=== PATIENT | male | born 1965 | race African-American/Black ===

== ENCOUNTER 2017-09-28 21:16 | Emergency (ER) | payer MEDICAID ==
[~2017-09-28] VITALS: Ht 185.4 cm; Wt 72.0 kg
[~2017-09-28 21:16] MED LIST: CIPR500T4 PO; PERC5TAB12 PO
[2017-09-28 21:36] VITALS: BP 148/88; PULSE 72; RESP 16; TEMP 97.8; O2SAT 98
[2017-09-28 21:55] VITALS: BP 127/76; PULSE 67; RESP 16; O2SAT 98
--- NOTE | 2017-09-28 22:06 | PD ---
HPI Chief Complaint: Abdominal Pain Time Seen by Provider: 21:56 Travel History International Travel<30 days: No Contact w/Intl Traveler<30days: No Traveled to known affect area: No History of Present Illness HPI The patient is a 52 year old male who presents to the [facility] emergency department with a history of abdominal pain in the center of his abdomen that began at 4:30 AM this morning. He reports that the pain is sharp in character. The pain is in the suprapubic and area just below the umbilicus. He then noticed having dysuria at approximately 8 AM. He describes it as a burning sensation. The pain in his abdomen is worse after urinating. He denies urinary urgency or frequency. He reports that the pain is similar to when he had a urinary tract infection in the past. He reports that the sensation in his abdomen makes him feel like he needs to move his bowels. He has had loose stool a few times today. He denies having any blood in his stool. He denies having any mucus in his stool. He denies having any penile discharge, scrotal pain or swelling.On review of systems otherwise, the patient denies having any recent fevers, flank pain, cough, congestion, neck pain, chest pain, shortness of breath, vomiting, or neurologic symptoms. [facility] Past Medical History Narrative Medical Patient's past medical history is significant for urinary tract infection, peptic ulcer disease, GERD. Arthritis: No Asthma: Yes Autoimmune Disease: No Blood Disorders: No Anxiety: Yes Depression: No Heart Rhythm Problems: No Cancer: No Cardiac Catheterization: No Cardiovascular Problems: Yes (CHEST PRESSURE) High Cholesterol: No Chemotherapy: No Chest Pain: Yes Congestive Heart Failure: No COPD: No Cerebrovascular Accident: No Diabetes: No Diminished Hearing: No Endocrine: No Gastrointestinal Disorders: Yes GERD: Yes Glaucoma: No Genitourinary: No Headaches: No Hepatitis: No Hiatal Hernia: No Hypertension: No Immune Disorder: No Kidney Stones: No Musculoskeletal: No Neurologic: No Psychiatric: No Reproductive: No Respiratory: Yes (BRONCHITIS, CHEMICAL PNEUMONITIS 10/31) Migraines: No Myocardial Infarction: No Radiation Therapy: No Renal Failure: No Seizures: No Sickle Cell Disease: No Sleep Apnea: No Thyroid Disease: No Ulcer: Yes Past Surgical History Narrative Surgical The patient's past surgical history is significant for an appendectomy Abdominal Surgery: No Appendectomy: Yes Cardiac Surgery: No Cholecystectomy: No Coronary Artery Bypass Graft: No Ear Surgery: No Endocrine Surgery: No Eye Surgery: No Gynecologic Surgery: No Oral Surgery: No Thoracic Surgery: No Social History Alcohol Use: No Tobacco Use: No (quit smoking 3 months ago.) Substance Use: Yes (OCCASSIONAL MARIJUANA) Allergies-Medications (Allergen,Severity, Reaction): Coded Allergies: albuterol (Unverified Allergy, Mild, HIVES, 09/28/17) aspirin (Unverified Allergy, Mild, SWELLING IN EYES, 09/28/17) Reported Meds & Prescriptions Reported Meds & Active Scripts Active No Active Prescriptions or Reported Medications Zantac Review of Systems Except as stated in HPI: all other systems reviewed are Neg General / Constitutional: No: Fever Eyes: No: Visual changes HENT: No: Headaches Cardiovascular: No: Chest Pain or Discomfort Respiratory: No: Shortness of Breath Gastrointestinal: Positive: Diarrhea, Abdominal Pain, Changes in Bowel Habits, Indigestion, No: Nausea, Vomiting, Hematochezia, Constipation, Loss of Appetite Genitourinary: Positive: Dysuria, No: Urgency, Frequency, Flank Pain Musculoskeletal: No: Pain Skin: No Rash Neurologic: No: Weakness, Focal Abnormalities, Change in Mentation, Slurred Speech, Sensory Disturbance Psychiatric: No: Depression Endocrine: No: Polydipsia Hematologic/Lymphatic: No: Easy Bruising Physical Exam Narrative General: The patient is a well-developed well-nourished male in no acute distress. Head and Neck exam: Head is normocephalic atraumatic. Eyes: EOMI, pupils are equal round and reactive to light. Nose: Midline septum with pink mucous membranes Mouth: Dentition unremarkable. Moist mucus membranes. Posterior oropharynx is not erythematous. No tonsillar hypertrophy. Uvula midline. Airway patent. Neck: No palpable lymphadenopathy. No nuchal rigidity. No thyromegaly. Cardiovascular: Regular rate and rhythm without murmurs, gallops, or rubs. Lungs: Clear to auscultation bilaterally. No wheezes, rhonchi, or rales. Abdomen: Soft, with reported tenderness on palpation along the suprapubic area and area just below the umbilicus. No other tenderness on palpation of the other quadrants of the abdomen.. No guarding, rebound, or rigidity. Normal bowel sounds are audible, no tenderness on palpation of McBurney's point. Extremities: No clubbing, cyanosis, or edema. 2+ pulses in all 4 extremities. No calf tenderness on palpation. Back: No spinous process tenderness to palpation. No costovertebral angle tenderness to palpation. Neurologic Exam: Grossly nonfocal. Skin Exam: No rash noted. Intact skin that is warm and dry. Data Data Last Documented VS Vital Signs Date Time Temp Pulse Resp B/P (MAP) Pulse Ox O2 Delivery O2 Flow Rate FiO2 09/28/17 22:29 89 Nasal Cannula 4.00 09/28/17 21:55 67 16 127/76 (93) 09/28/17 21:36 97.8 Orders Orders Electrocardiogram (09/28/17 21:57) Complete Blood Count With Diff (09/28/17 21:57) Comprehensive Metabolic Panel (09/28/17 21:57) Prothrombin Time / Inr (Pt) (09/28/17 21:57) Act Partial Throm Time (Ptt) (09/28/17 21:57) C-Reactive Protein (Crp) (09/28/17 21:57) Lipase (09/28/17 21:57) Urinalysis - C+S If Indicated (09/28/17 21:57) Magnesium (Mg) (09/28/17 21:57) Iv Access Insert/Monitor (09/28/17 21:57) Ecg Monitoring (09/28/17 21:57) Oximetry (09/28/17 21:57) Urine Culture (09/28/17 22:00) Ciprofloxacin 400 Mg Premix (Cipro 400 M (09/28/17 23:45) Phenazopyridine (Pyridium) (09/28/17 23:45) Ct Abd/Pel W Iv Contrast(Rout) (09/28/17 23:44) Iohexol 350 Inj (Omnipaque 350 Inj) (09/28/17 23:58) Labs Laboratory Tests Test 09/28/17 22:00 White Blood Count 7.8 TH/MM3 Red Blood Count 4.28 MIL/MM3 Hemoglobin 11.9 GM/DL Hematocrit 35.3 % Mean Corpuscular Volume 82.6 FL Mean Corpuscular Hemoglobin 27.8 PG Mean Corpuscular Hemoglobin Concent 33.7 % Red Cell Distribution Width 13.7 % Platelet Count 214 TH/MM3 Mean Platelet Volume 9.5 FL Neutrophils (%) (Auto) 50.5 % Lymphocytes (%) (Auto) 34.4 % Monocytes (%) (Auto) 9.8 % Eosinophils (%) (Auto) 4.5 % Basophils (%) (Auto) 0.8 % Neutrophils # (Auto) 3.9 TH/MM3 Lymphocytes # (Auto) 2.7 TH/MM3 Monocytes # (Auto) 0.8 TH/MM3 Eosinophils # (Auto) 0.4 TH/MM3 Basophils # (Auto) 0.1 TH/MM3 CBC Comment DIFF FINAL Differential Comment Prothrombin Time 10.6 SEC Prothromb Time International Ratio 1.0 RATIO Activated Partial Thromboplast Time 26.8 SEC Urine Color YELLOW Urine Turbidity CLEAR Urine pH 7.0 Urine Specific [place] 1.022 Urine Protein NEG mg/dL Urine Glucose (UA) NEG mg/dL Urine Ketones NEG mg/dL Urine Occult Blood NEG Urine Nitrite NEG Urine Bilirubin NEG Urine Urobilinogen LESS THAN 2.0 MG/DL Urine Leukocyte Esterase LARGE Urine RBC 1 /hpf Urine WBC 50 /hpf Urine Squamous Epithelial Cells <1 /hpf Urine Amorphous Sediment RARE Urine Mucus FEW /lpf Microscopic Urinalysis Comment CULTURE INDICATED Blood Urea Nitrogen 15 MG/DL Creatinine 1.08 MG/DL Random Glucose 94 MG/DL Total Protein 6.8 GM/DL Albumin 3.4 GM/DL Calcium Level 8.4 MG/DL Magnesium Level 1.8 MG/DL Alkaline Phosphatase 153 U/L Aspartate Amino Transf (AST/SGOT) 20 U/L Alanine Aminotransferase (ALT/SGPT) 33 U/L Total Bilirubin 0.3 MG/DL Sodium Level 138 MEQ/L Potassium Level 4.3 MEQ/L Chloride Level 105 MEQ/L Carbon Dioxide Level 24.2 MEQ/L Anion Gap 9 MEQ/L Estimat Glomerular Filtration Rate 87 ML/MIN C-Reactive Protein LESS THAN 0.29 MG/DL Lipase 171 U/L [facility] Medical Decision Making Medical Screen Exam Complete: Yes Emergency Medical Condition: Yes Medical Record Reviewed: Yes Interpretation(s) Last Impressions Abdomen/Pelvis CT 09/28/17 [id number] Signed Impressions: Service Date/Time: Friday, September 29, 2017 00:00 - CONCLUSION: 1. No evidence of acute abdominal or pelvic process. No masses are identified. Chance Burrell MD Differential Diagnosis Prostatitis, versus cystitis, versus pyelonephritis, versus kidney stone, versus diverticulitis Narrative Course During the course of the patients emergency department visit, the patients history, examination, and differential diagnosis were reviewed with the patient. The patient was placed on a property assessment monitor with oximetry and frequent blood pressure monitoring. The patient had IV access obtained and blood work sent for analysis. The patient had an ECG done on arrival. The patient's ECG reveals a sinus bradycardia heart rate of 55, no acute ST segment elevation or depression, QRS duration is 88 ms, QTC 360 ms. The patients laboratory studies were reviewed and remarkable for a white count of 7.8, hemoglobin 11.9, platelets 214 with 9.8 monocytes, CMP is remarkable for GFR of 87, calcium 8.4, alkaline phosphatase 153, C-reactive protein less than 0.29, lipase 171, PT PTT within normal limits, urinalysis shows large leukocyte esterase 50 WBCs, otherwise unremarkable. The patient was given ciprofloxacin 400 mg IV, Pyridium 200 mg by mouth 1 for pain. Radiology studies were reviewed and remarkable for a CT scan of the abdomen and pelvis with IV contrast that shows no evidence of acute abdominal or pelvic process. No masses are identified. The patient will be discharged home with a perception for ciprofloxacin. The patient is resting comfortably and feels better, is alert and in no distress. The patients results and examination findings were discussed with the patient. The repeat examination is unremarkable and benign. The history, exam, diagnostic testing, and current condition do not suggest any significant pathology to warrant further testing, continued ED treatment, admission, or surgical evaluation at this point. The vital signs have been stable. The patient does not have uncontrollable pain, intractable vomiting, or other significant symptoms. The patient's condition is stable and appropriate for discharge. The patient will pursue further outpatient evaluation with a primary care physician or other designated or consulting physician as indicated in the discharge instructions. The patient expressed understanding and was agreeable with this plan. Diagnosis Primary Impression: Urinary tract infection Qualified Codes: N39.0 - Urinary tract infection, site not specified Referrals: [facility] 3 days Patient Instructions: General Instructions, Urinary Tract Infection in Men (ED) Med/Other Pt SpecificInfo: Prescription(s) given Scripts Ciprofloxacin (Cipro) 500 Mg Tab 500 MG PO BID for Infection, #19 TAB 0 Refills Prov: Nancy Mehta MD 09/29/17 Disposition: DISCHARGE HOME Condition: Stable Nancy Mehta MD Sep 28, 2017 22:06
[2017-09-28 22:41] LABS: AUTOMATED NEUTROPHIL # 3.9 TH/MM3 (1.8-7.7); BASOPHIL # 0.1 TH/MM3 (0-0.2); BASOPHIL % 0.8 % (0.0-2.0); EOSINOPHIL # 0.4 TH/MM3 (0-0.4); EOSINOPHIL % 4.5 % (0.0-4.0); HEMATOCRIT 35.3 % (39.0-51.0); HEMO FLAGS DIFF FINAL; LYMPH % 34.4 % (9.0-44.0); LYMPHOCYTE # 2.7 TH/MM3 (1.0-4.8); MEAN CELL VOLUME 82.6 FL (80.0-100.0); MEAN CORPUSCULAR HEMOGLOBIN 27.8 PG (27.0-34.0); MEAN CORPUSCULAR HGB CONC 33.7 % (32.0-36.0); MONO % 9.8 % (0.0-8.0); NEUT % 50.5 % (16.0-70.0); PLATELET COUNT 214 TH/MM3 (150-450); RED BLOOD COUNT 4.28 MIL/MM3 (4.50-5.90); RED CELL DISTRIBUTION WIDTH 13.7 % (11.6-17.2); WHITE BLOOD COUNT 7.8 TH/MM3 (4.0-11.0)
[2017-09-28 22:48] LABS: BLOOD, URINE NEG (NEG); COMMENT (UR) CULTURE INDICATED; CULTURE IF INDICATED CULTURE INDICATED; GLUCOSE,URINE NEG (NEG); KETONE, URINE NEG (NEG); MUCUS URINE FEW /lpf (OCC); NITRITE,URINE NEG (NEG); SQUAMOUS EPITHELIAL CELL URINE <1 /hpf (0-5); URINE COLOR YELLOW (YELLW/STRAW)
[2017-09-28 23:03] LABS: APTT (PATIENT) 26.8 SEC (24.3-30.1); PROTHROMBIN TIME - PATIENT 10.6 SEC (9.8-11.6)
[2017-09-28 23:27] LABS: ALT (GPT) 33 U/L (12-78); ANION GAP 9 MEQ/L (5-15); AST (GOT) 20 U/L (15-37); BICARBONATE 24.2 MEQ/L (21.0-32.0); BLOOD UREA NITROGEN 15 MG/DL (7-18); CHLORIDE 105 MEQ/L (98-107); GLOMERULAR FILTRATION RATE 87 ML/MIN (>89); MAGNESIUM 1.8 MG/DL (1.5-2.5); POTASSIUM 4.3 MEQ/L (3.5-5.1); SODIUM (NA) 138 MEQ/L (136-145)
[2017-09-28 23:28] LABS: ALKALINE PHOSPHATASE 153 U/L (45-117); TOTAL BILIRUBIN ADULT 0.3 MG/DL (0.2-1.0)
[2017-09-28] MEDS ORDERED: PHENAZOPYRIDINE HCL 200 MG TAB PO ONE (23:45)
[2017-09-28] MEDS ORDERED: CIPROFLOXACIN 400 MG PREMIX 200 ML IV ONE (23:45)
[2017-09-28] MEDS ORDERED: IOHEXOL 350 MG/ML 10 ML VIAL (for RAD DIAG) IVCONTRAST ONE (23:58)
--- NOTE | 2017-09-29 00:20 | RADRPT ---
EXAM DATE/TIME: 09/29/2017 00:00 [facility] COMPARISON: No previous studies available for comparison. INDICATIONS : Painful urination. IV CONTRAST: 96 cc Omnipaque 350 (iohexol) IV ORAL CONTRAST: No oral contrast ingested. RADIATION DOSE: 5.14 CTDIvol (mGy) MEDICAL HISTORY : None SURGICAL HISTORY : None. ENCOUNTER: Initial ACUITY: 1 day PAIN SCALE: 7/10 LOCATION: abdomen TECHNIQUE: Volumetric scanning of the abdomen and pelvis was performed. Using automated exposure control and ad justment of the mA and/or kV according to patient size, radiation dose was kept as low as reasonably achievable to obtain optimal diagnostic quality images. DICOM format image data is available electro nically for review and comparison. FINDINGS: Examination of the lung bases demonstrates no abnormality. No pleural fluid is identified. No pulmona ry nodules are present. There are multiple hypodensities within the liver compatible with hepatic cys ts the largest measuring 2 cm in segment 7. The spleen is normal in size and free of focal defects. T he gallbladder is small and contracted. The pancreas demonstrates no evidence of mass and there is no dilatation of the pancreatic duct. The adrenal glands and kidneys appear normal bilaterally. No hydr onephrosis or mass lesions are identified. Examination of the pelvis demonstrates no evidence of free fluid or pelvic mass. No abnormally enlarg ed inguinal or retroperitoneal lymph nodes are present. The bladder is unremarkable. The prostate gla nd is mildly enlarged impinging on the bladder base. CONCLUSION: 1. No evidence of acute abdominal or pelvic process. No masses are identified. Chance Burrell MD on September 29, 2017 at 0:15 Board Certified Radiologist. This report was verified electronically.
[2017-09-29] MEDS ORDERED: CIPR-9 PO (00:51)
[2017-09-29] MEDS ORDERED: PROM25TA10 PO (01:22)
[2017-09-29 01:24] VITALS: BP 125/60
[2017-09-29] MEDS ORDERED: ONDANSETRON HCL 4 MG/2 ML VIAL IV ONE (01:30)
--- NOTE | 2017-09-29 08:25 | EKG ---
Date Performed: 09/28/2017 Time Performed: 22:19:58 PTAGE: 52 years EKG: SINUS BRADYCARDIA BORDERLINE ECG PREVIOUS TRACING : 01/05/2009 03.51 Compared to previous tracing, heart rate has slowed. DOCTOR: Brien Osborne Interpretating Date/Time 09/29/2017 08:23:49
[2017-09-30] MEDS ORDERED: MEDI220T PO (11:35)
== END 2017-09-29 01:25 | disposition home or self-care (01) ==
LOC: NEPE 21:16
DX: N39.0 Urinary tract infection, site not specified (principal); B96.1 Klebsiella pneumoniae [K. pneumoniae] as the cause of diseases classified elsewhere; R00.1 Bradycardia, unspecified; J45.909 Unspecified asthma, uncomplicated; K21.9 Gastro-esophageal reflux disease without esophagitis; Z88.6 Allergy status to analgesic agent; Z88.8 Allergy status to other drugs, medicaments and biological substances
CPT/HCPCS: 74177; 80053; 81001; 83690; 83735; 85025; 85610; 85730; 86140; 87077; 87086; 87186; 93005; 96365; 99285; J0744; Q9967

== ENCOUNTER 2017-09-30 08:02 | Emergency (ER) | payer MEDICAID ==
[~2017-09-30] VITALS: Ht 185.4 cm; Wt 75.0 kg
[~2017-09-30 08:02] MED LIST changes: +CIPR-9 PO; -CIPR500T4 PO; -PERC5TAB12 PO; +PROM25TA10 PO
[2017-09-30 08:13] VITALS: BP 130/89; PULSE 63; RESP 17; TEMP 98; O2SAT 99
[2017-09-30] MEDS ORDERED: MEDI220T PO (11:35)
--- NOTE | 2017-09-30 11:45 | PD ---
HPI . Left lower back pain Chief Complaint: Back/ Neck Pain or Injury Time Seen by Provider: 08:26 Travel History International Travel<30 days: No Contact w/Intl Traveler<30days: No Traveled to known affect area: No History of Present Illness HPI 52-year-old male patient presents emergency department for evaluation of left lumbar sacral back pain that radiates down the posterior aspect of the left leg. Patient denies any saddle numbness, incontinence of urine or bowel or IV drug use. Patient is currently being treated for urinary tract infection. He was at our facility yesterday and evaluated for symptoms. Patient just started his antibiotic but states he is still running fevers. Patient denies any hematuria or dysuria but states it is difficult to start his urinary stream. PFSH Past Medical History Arthritis: No Asthma: Yes Autoimmune Disease: No Blood Disorders: No Anxiety: Yes Depression: No Heart Rhythm Problems: No Cancer: No Cardiac Catheterization: No Cardiovascular Problems: Yes (CHEST PRESSURE) High Cholesterol: No Chemotherapy: No Chest Pain: Yes Congestive Heart Failure: No COPD: No Cerebrovascular Accident: No Diabetes: No Diminished Hearing: No Endocrine: No Gastrointestinal Disorders: Yes GERD: Yes Glaucoma: No Genitourinary: No Headaches: No Hepatitis: No Hiatal Hernia: No Heparin Induced Thrombocytopen: No Hypertension: No Immune Disorder: No Implanted Vascular Access Dvce: No Kidney Stones: No Musculoskeletal: No Neurologic: No Psychiatric: No Reproductive: No Respiratory: Yes (BRONCHITIS, CHEMICAL PNEUMONITIS 10/31) Migraines: No Myocardial Infarction: No Radiation Therapy: No Renal Failure: No Seizures: No Sickle Cell Disease: No Sleep Apnea: No Thyroid Disease: No Ulcer: Yes Past Surgical History Abdominal Surgery: No Appendectomy: Yes Cardiac Surgery: No Cholecystectomy: No Coronary Artery Bypass Graft: No Ear Surgery: No Endocrine Surgery: No Eye Surgery: No Gynecologic Surgery: No Neurologic Surgery: No Oral Surgery: No Thoracic Surgery: No Other Surgery: No Family History Family Myocardial Infarction: No Social History Alcohol Use: No Tobacco Use: No (quit smoking 3 months ago.) Substance Use: Yes (OCCASSIONAL MARIJUANA) Allergies-Medications (Allergen,Severity, Reaction): Coded Allergies: albuterol (Unverified Allergy, Mild, HIVES, 09/30/17) aspirin (Unverified Allergy, Mild, SWELLING IN EYES, 09/30/17) Reported Meds & Prescriptions Reported Meds & Active Scripts Active Naproxen Sodium 220 Mg Tab 440 Mg PO BID PRN Phenergan (Promethazine HCl) 25 Mg Tablet 25 Mg PO Q8HR PRN Cipro (Ciprofloxacin HCl) 500 Mg Tab 500 Mg PO BID Review of Systems Except as stated in HPI: all other systems reviewed are Neg Physical Exam Narrative GENERAL: Well-nourished, well-developed 52-year-old male patient in no acute distress. Nontoxic appearing. SKIN: Focused skin assessment warm/dry. HEAD: Normocephalic. Atraumatic. EYES: No scleral icterus. No injection or drainage. NECK: Supple, trachea midline. No JVD or lymphadenopathy. CARDIOVASCULAR: Regular rate and rhythm without murmurs, gallops, or rubs. Pedal pulses +2 bilaterally. RESPIRATORY: Breath sounds equal bilaterally. No accessory muscle use. GASTROINTESTINAL: Abdomen soft, non-tender, nondistended. MUSCULOSKELETAL: No cyanosis, or edema. Range of motion noted in bilateral lower extremities. BACK: Nontender without obvious deformity. No CVA tenderness. Data Data Last Documented VS Vital Signs Date Time Temp Pulse Resp B/P (MAP) Pulse Ox O2 Delivery O2 Flow Rate FiO2 09/30/17 08:13 98.0 63 17 130/89 (103) [address] Lumb Spine W/O Contrast (09/30/17 08:57) [facility] Medical Decision Making Medical Screen Exam Complete: Yes Emergency Medical Condition: Yes Differential Diagnosis Differential diagnoses include but not limited to sciatica, pyelonephritis, lumbar strain, lumbar sprain Narrative Course 52-year-old male patient presents emergency department for evaluation of left lumbar sacral back pain that radiates down the left posterior aspect of the leg. Patient denies any injury, falls or trauma to the site. Patient has full range of motion bilateral lower extremities. Bilateral lower extremities neurovascularly intact. Lumbar CT ordered. Patient had received an abdominal CAT scan during his evaluation at our facility yesterday. Radiologist able to read lumbar CT from the previous abdominal CT. Lumbar CT shows mild broad- based bulging at L5 through S1. Patient will be discharged home with a prescription for naproxen, instructions to continue antibiotics for urinary tract infection and to follow-up with his primary care as needed but return to the emergency department for any worsening condition. Last Impressions Lumbar Spine CT 09/30/17 0857 Signed Impressions: Service Date/Time: Saturday, September 30, 2017 10:15 - CONCLUSION: 1. Mild broad-based bulging at L5-S1 2. Otherwise unremarkable exam for patient's age. Javier Rojas MD Diagnosis Primary Impression: Sciatica Qualified Codes: M54.32 - Sciatica, left side Referrals: Primary Care Physician Patient Instructions: General Instructions, Sciatica (ED) Additional Instructions: Please return to emergency department if your symptoms return or worsen. Follow up with your primary care provider. Take medications as prescribed. Med/Other Pt SpecificInfo: Prescription(s) given Scripts Naproxen Sodium (Naproxen Sodium) 220 Mg Tab 440 MG PO BID Y for Pain Management, #15 TAB 0 Refills Prov: Cassy Galicia 09/30/17 Disposition: 01 DISCHARGE HOME Condition: Stable Cassy Galicia Sep 30, 2017 11:45
--- NOTE | 2017-09-30 12:45 | RADRPT ---
EXAM DATE/TIME: 09/30/2017 10:15 [facility] COMPARISON: No previous studies available for comparison. INDICATIONS : Chronic back pain. RADIATION DOSE: ; Reconstructed from previous dataset, no dose MEDICAL HISTORY : None SURGICAL HISTORY : None. ENCOUNTER: Initial ACUITY: 1 day PAIN SCALE: 7/10 LOCATION: Bilateral back TECHNIQUE: Volumetric scanning of the lumbar spine was performed. Multiplanar reconstructions in the sagittal, coronal and oblique axial planes were performed. Using automated exposure control and adjustment of the mA and/or kV according to patient size, radiation dose was kept as low as reasonably achievable t o obtain optimal diagnostic quality images. DICOM format image data is available electronically for review and comparison. FINDINGS: VERTEBRAE: Normal vertebral body height. Mild primary degenerative changes characteristic of patients age. No co mpression fractures are demonstrated. ALIGNMENT: No evidence of subluxation. T12-L1: The thecal sac has a normal diameter. No evidence of disc bulge or protrusion. The neural foramina are patent bilaterally. L1-L2: The thecal sac has a normal diameter. No evidence of disc bulge or protrusion. The neural foramina are patent bilaterally. L2-L3: The thecal sac has a normal diameter. No evidence of disc bulge or protrusion. The neural foramina are patent bilaterally. L3-L4: The thecal sac has a normal diameter. No evidence of disc bulge or protrusion. The neural foramina are patent bilaterally. L4-L5: The thecal sac has a normal diameter. No evidence of disc bulge or protrusion. The neural foramina are patent bilaterally. L5-S1: The thecal sac has a normal diameter. Mild broad-based bulging. The neural foramina are patent bilat erally. CONCLUSION: 1. Mild broad-based bulging at L5-S1 2. Otherwise unremarkable exam for patient's age. Javier Rojas MD on September 30, 2017 at 12:43 Board Certified Radiologist. This report was verified electronically.
== END 2017-09-30 11:55 | disposition home or self-care (01) ==
LOC: NEPD 08:02
DX: M54.32 Sciatica, left side (principal); N39.0 Urinary tract infection, site not specified; J45.909 Unspecified asthma, uncomplicated; F41.9 Anxiety disorder, unspecified; K21.9 Gastro-esophageal reflux disease without esophagitis; Z79.899 Other long term (current) drug therapy; Z88.6 Allergy status to analgesic agent; Z88.8 Allergy status to other drugs, medicaments and biological substances; Z87.891 Personal history of nicotine dependence
CPT/HCPCS: 72131

== ENCOUNTER 2018-07-08 10:44 | Inpatient (IN) ==
[2018-07-08 10:53] VITALS: RESP 18
[2018-07-08] MEDS ORDERED: Morphine Inj 4 MG/ML Vial IV.PUSH ONE (11:32)
[2018-07-08] MEDS ORDERED: Clindamycin 600 mg/NS Premix 600 MG/50 ML PIGGYBACK IV.SIG ONE (11:32)
[2018-07-08 12:02] LABS: Baso % (Auto) 0.6 % (0.0-2.0); Eos # (Auto) 0.1 th/mm3 (0.0-0.4); Eos % (Auto) 1.8 % (0.0-4.0); Hematocrit 39.1 % (39.0-51.0); Hemoglobin 12.8 gm/dL (13.0-17.0); Lymph % (Auto) 29.4 % (9.0-44.0); Mean Corpuscular HGB Conc 32.8 % (32.0-36.0); Mean Corpuscular Hemoglobin 27.5 pg (27.0-34.0); Mean Corpuscular Volume 83.7 fL (80.0-100.0); Mean Platelet Volume 8.3 fL (7.0-11.0); Mono # (Auto) 0.6 th/mm3 (0.0-0.9); Mono % (Auto) 9.2 % (0.0-8.0); Platelet Count 241 th/mm3 (150-450); Red Blood Count 4.68 mil/mm3 (4.50-5.90); Red Cell Distribution Width 13.6 % (11.6-17.2); White Blood Count 6.8 th/mm3 (4.0-11.0)
--- NOTE | 2018-07-08 12:05 | ED ---
HPI General Chief complaint: Dental/Oral Stated complaint: oral Time Seen by Provider: 07/08/18 11:20 Source: patient Mode of arrival: ambulatory Limitations: no limitations History of Present Illness HPI Narrative: Pain and swelling of the left jaw Onset (ago): month(s) (1 month) Duration: other (He took a friend's antibiotic in his symptoms temporarily resolved. They recurred about a week ago.) Severity scale (1-10): 9 Relieving factors: nothing Exacerbating factors: nothing Treatment prior to arrival: none (Friend's antibiotic. The name of the antibiotic is unknown.) Related Data Home Medications Medication Instructions Recorded Confirmed No Known Home Medications 07/08/18 07/08/18 Allergies Allergy/AdvReac Type Severity Reaction Status Date / Time albuterol Allergy Mild HIVES Verified 07/08/18 11:46 aspirin Allergy Mild SWELLING Unverified 09/30/17 08:13 IN EYES Review of Systems ROS: all other systems reviewed are negative [facility] Medical History Medical History Patient denies medical problems (Acute) Surgical History Surgical History No history of previous surgery (Acute) Social History Social History Recent Travel in [facility] within the Last 8 Weeks: No Recent Out of Country Travel within the Last 8 Weeks: No Exam Const General: cooperative, healthy appearing, comfortable, no acute distress, well developed and well groomed Nutritional Appearance: average body habitus Orientation: alert, awake and oriented x3 HENMT Head: normal to inspection, normocephalic, atraumatic and other Teeth and gingiva: gingiva abnormal edematous and tender Eyes General: appearance normal, both eyes and all related structures Conjunctivae: conjunctivae normal Sclera: sclerae normal EOM: EOM intact bilaterally Neck Neck: normal visual inspection, full ROM and no lymphadenopathy Chest Chest: normal inspection of the chest Resp Effort & Inspection: normal respiratory effort and able to speak in complete sentences Cardio Rate: regular rate Rhythm: regular rhythm Back/Spine/Pelvis Cervical Spine: cervical ROM normal Thoracic/Lumbar Spine: thoraco-lumbar ROM normal Skin General: no rashes or lesions noted and turgor normal Neuro General: alert, awake, oriented x3, moves all extremities and CN's II-XI intact bilaterally Extrem General: normal to inspection and full ROM Psych Appearance: grossly normal Mental Status: mental status grossly normal Speech and Movement: speech and movement normal Mood: congruent mood Affect: normal affect Attitude: cooperative Thought Process: normal Thought Content: normal Judgment: judgment good Procedures Abscess I/D Site: oral (mandibular gum) Side (if applicable): left Technique: incised with #11 blade Irrigation: No Packing used?: none Course Consultations Consultation #1: Dr. Amin will admit Time: 14:48 Initial Documented Vital Signs Temperature 98.2 F 07/08/18 10:51 Pulse Rate 87 07/08/18 10:51 Respiratory Rate 18 07/08/18 10:51 Blood Pressure 143/80 H 07/08/18 10:51 Pulse Oximetry 99 07/08/18 10:51 Last Documented Vital Signs Temperature 98.2 F 07/08/18 10:51 Pulse Rate 87 07/08/18 10:51 Respiratory Rate 18 07/08/18 10:51 Blood Pressure 143/80 H 07/08/18 10:51 Pulse Oximetry 99 07/08/18 10:51 Medical Decision Making MDM Narrative Medical decision making narrative: This patient presents stating that he was sent here by dentist for rule out cancer in his left mandible. He has had pain and swelling in that area for about a month. He took a friend's antibiotics with relief of his symptoms. The symptoms recurred about a week ago. He went to the dentist and the dentist took x-rays and told him that he might have cancer and instructed him to come to the hospital. On examination, he has a fluctuant abscess of the left mandibular gingiva. That has been drained. CT of his facial bones has been ordered. He is being given a dose of IV clindamycin. 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 Medical Screen Exam Complete: Yes Emergency Medical Condition: Yes Differential Diagnosis Differential Diagnosis: Differential diagnosis of a toothache includes but is not limited to dental caries, dental abscess, gingivitis, drug-seeking behavior. Lab Data Lab results reviewed: Yes I reviewed the patient's lab results. Result diagrams: 07/08/18 11:40 07/08/18 11:40 Lab Results 07/08/18 07/08/18 Range/Units 11:40 11:40 WBC 6.8 (4.0-11.0) th/mm3 RBC 4.68 (4.50-5.90) mil/mm3 Hgb 12.8 L (13.0-17.0) gm/dL Hct 39.1 (39.0-51.0) % MCV 83.7 (80.0-100.0) fL MCH 27.5 (27.0-34.0) pg MCHC 32.8 (32.0-36.0) % RDW 13.6 (11.6-17.2) % Plt Count 241 (150-450) th/mm3 MPV 8.3 (7.0-11.0) fL Neut % (Auto) 59.0 (16.0-70.0) % Lymph % (Auto) 29.4 (9.0-44.0) % [place] % (Auto) 9.2 H (0.0-8.0) % Eos % (Auto) 1.8 (0.0-4.0) % Baso % (Auto) 0.6 (0.0-2.0) % Neut # (Auto) 4.0 (1.8-7.7) th/mm3 Lymph # (Auto) 2.0 (1.0-4.8) th/mm3 [place] # (Auto) 0.6 (0.0-0.9) th/mm3 Eos # (Auto) 0.1 (0.0-0.4) th/mm3 Baso # (Auto) 0.0 (0.0-0.2) th/mm3 WBC Differential . Differential Comment Auto diff final Sodium 138 (136-145) meq/L Potassium 4.6 (3.5-5.1) meq/L Chloride 108 H (98-107) meq/L Carbon Dioxide 23.4 (21.0-32.0) meq/L Anion Gap 7 (5-15) meq/L BUN 11 (7-18) mg/dL Creatinine 0.92 (0.60-1.30) mg/dL Estimated GFR Greater than 89 (>89) mL/min Random Glucose 91 (74-106) mg/dL Calcium 8.4 L (8.5-10.1) mg/dL Imaging Data Radiologist's impression: Face CT 07/08/18 11:32 CONCLUSION: 1. Abnormal dentition in the left maxilla with multiple fractured or decayed teeth. 2. At the root of these teeth, there is severe bony destruction of the mandible characteristic of osteomyelitis. No associated soft tissue abscess identified. 3. Small dentigerous cyst at the root of the second left mandibular premolar. 4. Multiple retention cysts in the maxillary antra. Discharge Plan Discharge Disposition Patient Disposition: 30 Still Patient Discharge Condition Condition: Stable Discharge Details Diagnosis: Acute osteomyelitis of mandible Physicians Team ED Provider: Shena Edge Primary Care Provider: Primary Care Joan Atkins Rxs /Orders / Referrals /Forms Prescriptions: No Action No Known Home Medications RF: 0 Status ED Status: Pending Admission
[2018-07-08 12:30] LABS: Anion Gap 7 meq/L (5-15); Blood Urea Nitrogen 11 mg/dL (7-18); Calcium 8.4 mg/dL (8.5-10.1); Carbon Dioxide 23.4 meq/L (21.0-32.0); Chloride 108 meq/L (98-107); Glomerular Filtration Rate Greater Than 89 mL/min (>89); Glucose,Random 91 mg/dL (74-106); Sodium 138 meq/L (136-145)
[2018-07-08 12:35] LABS: Potassium 4.6 meq/L (3.5-5.1)
--- NOTE | 2018-07-08 14:16 | CT ---
EXAM DATE: 07/08/2018 1:38 PM EDT AGE/SEX: 53 years / Male INDICATIONS: Left jaw pain and swelling for 1 month after teeth extractions. Took antibiotics with n o change CLINICAL DATA: This is the patient's initial encounter. Patient reports that signs and symptoms have been present for 1 day and indicates a pain score of 9/10. MEDICAL/SURGICAL HISTORY: None. None. RADIATION DOSE: 56.76 CTDI (mGy) COMPARISON: No prior exams available for comparison. TECHNIQUE: Contiguous images in the axial and coronal planes were obtained using helical multirow de tector technique with 70 ml Omnipaque 350 (iohexol) nonionic water-soluble contrast as a single exam dose. Using automated exposure control and adjustment of the mA and/or kV according to patient size , radiation dose was kept as low as reasonably achievable to obtain optimal diagnostic quality images . DICOM format image data is available electronically for review and comparison. FINDINGS: Patient appears to have a gauze sponge in the left oral cavity. Abnormal left mandibular dentition w ith multiple fractured or decayed teeth. In addition, bony erosions involve the left mandible concern ing for osteomyelitis at the root of the abnormal teeth. On the mandible, there appears to be a benign, small dentigerous cyst at the root of the second premo lar. Osseous structures are otherwise intact. Small retention cysts are seen in the maxillary antra b ilaterally CONCLUSION: 1. Abnormal dentition in the left maxilla with multiple fractured or decayed teeth. 2. At the root of these teeth, there is severe bony destruction of the mandible characteristic of os teomyelitis. No associated soft tissue abscess identified. 3. Small dentigerous cyst at the root of the second left mandibular premolar. 4. Multiple retention cysts in the maxillary antra. Electronically signed by: Aguila Pacheco MD 07/08/2018 2:14 PM EDT
[2018-07-08] MEDS ORDERED: Temazepam 15 MG Capsule PO PRN (14:48)
[2018-07-08] MEDS ORDERED: Bisacodyl 10 MG Supp RECTAL PRN (14:48)
[2018-07-08] MEDS ORDERED: Acetaminophen 325 MG Tablet PO PRN (14:48)
[2018-07-08] MEDS ORDERED: Vancomycin Inj 1,000 MG in Sodium Chlor 0.9% Inj 250 ML IV.SIG ONE (14:55)
[2018-07-08] MEDS ORDERED: oxyCODONE/Acetaminophen 10/325 Tablet PO PRN (14:57)
[2018-07-08] MEDS ORDERED: Morphine Sulfate Inj 2 MG/ML Vial IV.PUSH PRN (14:57)
[2018-07-08] MEDS ORDERED: Morphine Inj 4 MG/ML Vial IV.PUSH PRN (14:57)
[2018-07-08] MEDS ORDERED: Naloxone Inj 0.4 MG/ML Vial IV.PUSH PRN (14:57)
[2018-07-08] MEDS ORDERED: Vancomycin Consult Pharmacy 1 EACH OTHER SCH (15:00)
[2018-07-08] MEDS: Sod Chloride 0.9% Inj 1,000 ML IV.CONT SCH (15:17)
[2018-07-08] MEDS: Piperacil/Tazo 4.5 GM Premix 4.5 GM/100 ML BAG IV.SIG SCH ×2 (15:35→23:47)
--- NOTE | 2018-07-08 16:39 | P.HPIM ---
History of Present Illness Service: [facility]/HEP Primary Care Physician: No Primary Care Physician Chief Complaint: DENTAL ISSUES History of Present Illness: Patient is a 53-year-old -[place] gentleman. Who presented to the emergency department with pain and swelling on the left side of his jaw. He has had the pain and swelling of the left jaw for couple months. He took a friend's antibiotic for symptoms temporarily resolved and then recurred about a week later. Pain is about 9 out of 10. He had some improvement with the friend 's antibiotics. Patient had incision and drainage in the emergency by the emergency room physician will get cultures. Have discussed with oral maxillary facial and infectious disease and the emergency room physician. Inpatient Certification: I certify that the inpatient services were ordered in accordance with Medicare regulations governing the order. This includes certification that hospital inpatient services are reasonable and necessary and in the case of services not specified as inpatient-only under 42 CFR 419.22(n), that they are appropriately provided as inpatient services in accordance to with the 2-midnight benchmark under 43 CFR 412.3(e) Estimated Total Length of Stay (Days): 3 Plans for Post Hospital Care: Not yet determined Review of Systems All other systems reviewed negative except as stated in HPI PMFSH - History History Provided By: Patient - Medical History Medical History: Medical History (Last Reviewed 07/08/18 @ 12:01 by Shena Edge) Patient denies medical problems - Surgical History Surgical History: Surgical History (Last Updated 07/08/18 @ 10:53 by Abigail Mike) No history of previous surgery - Family History Family History: Family History (Last Updated 07/08/18 @ 16:33 by Ramin Amin DO) Other Family history of hypertension - Tobacco History Second Hand Smoke Exposure: No Tobacco Use In Past 30 Days: No Tobacco Type: Cigarettes - Substance Use History Substance History: Active Abuse - Substance Use Type Marijuana Status: Active Route Used: Inhalation - Travel History History of Recent Travel: No Recent Travel in the [place] Within the Last 8 Weeks: No Recent Travel Out of the Country Within the Last 8 Weeks: No Medications and Allergies Active Medications: Active Medications Acetaminophen (Tylenol) 650 mg PO Q4H PRN PRN Reason: Temp > 100.4 Al Hydroxide/Mg Hydroxide (Milk Of Magnesia Liq) 30 ml PO Q12H PRN PRN Reason: Mild Constipation Bisacodyl (Dulcolax Supp) 10 mg RECTAL DAILY PRN PRN Reason: SEVERE CONSITIPATION Sodium Chloride (Ns Inj) 1,000 mls @ 100 mls/hr IV.CONT .Q10H [facility] Last Admin: 07/08/18 15:17 Dose: 100 mls/hr Piperacillin/Tazobactam/Dextrose (Zosyn 4.5 Gm Premix) 4.5 gm in 100 mls @ 200 mls/hr IV.SIG Q8H [facility] Last Admin: 07/08/18 15:35 Dose: 200 mls/hr Pharmacy Profile Note (Vancomycin Consult Pharmacy) 0 mls @ 0 mls/hr OTHER UNSCH JÚNIOR Vancomycin HCl 1,250 mg/ (Sodium Chloride) 262.5 mls @ 250 mls/hr IV.SIG Q12H [facility] Lactulose (Lactulose Liq) 30 ml PO DAILY PRN PRN Reason: SEVERE CONSITIPATION Miscellaneous Information ([facility] Ordered Lab Info) 0 each OTHER ONCE ONE Stop: 07/10/18 05:46 Morphine Sulfate (Morphine Inj) 4 mg IV.PUSH Q3H PRN PRN Reason: PAIN 6-10;IF UNABLE TO TAKE PO Morphine Sulfate (Morphine Inj) 2 mg IV.PUSH Q3H PRN PRN Reason: PAIN 3-5; IF UABLE TO TAKE PO Naloxone HCl (Narcan Inj) 0.4 mg IV.PUSH UNSCH PRN PRN Reason: SEE LABEL COMMENTS Ondansetron HCl (Zofran Inj) 4 mg IV.PUSH Q6H PRN PRN Reason: NAUSEA OR VOMITING Oxycodone/Acetaminophen (Percocet 10/325 Mg) 1 tab PO Q6H PRN PRN Reason: PAIN SCALE 6 TO 10 Oxycodone/Acetaminophen (Percocet 5/325 Mg) 1 tab PO Q6H PRN PRN Reason: PAIN SCALE 3 TO 5 Senna/Docusate Sodium (Emilie-Colace) 1 tab PO BID [facility] Sennosides (Senokot) 17.2 mg PO Q12H PRN PRN Reason: Moderate Constipation Sodium Chloride (Ns Flush) 2 ml IV.FLUSH PRN PRN PRN Reason: FLUSH AFTER USING IV ACCESS Temazepam (Restoril) 15 mg PO HS PRN PRN Reason: INSOMNIA Allergies Allergy/AdvReac Type Severity Reaction Status Date / Time albuterol Allergy Mild HIVES Verified 07/08/18 11:46 aspirin Allergy Mild SWELLING Unverified 09/30/17 08:13 IN EYES Home Medications Medication Instructions Recorded Confirmed Type No Known Home Medications 07/08/18 07/08/18 History Exam Vital signs: Vital Signs 07/08/18 10:51 07/08/18 14:56 Temperature 98.2 F Pulse Rate 87 82 Respiratory Rate 18 18 Blood Pressure 143/80 H 117/63 Pulse Oximetry 99 Intake & Output 07/07/18 07/08/18 07/08/18 18:59 06:59 18:59 Weight 69.4 kg Narrative: GENERAL: Awake alert and oriented 3 talkative and cooperative SKIN: Warm and dry. HEAD: Atraumatic. Normocephalic. EYES: Pupils equal and round. No scleral icterus. No injection or drainage. ENT: No nasal bleeding or discharge. Mucous membranes pink and moist. Poor dentition dental abscess left side of mouth status post incision and drainage NECK: Trachea midline. No JVD. CARDIOVASCULAR: Regular rate and rhythm. S1-S2 no S3 or S4 RESPIRATORY: No accessory muscle use. Clear to auscultation. Breath sounds equal bilaterally. GASTROINTESTINAL: Abdomen soft, non-tender, nondistended. Hepatic and splenic margins not palpable. MUSCULOSKELETAL: Extremities without clubbing, cyanosis, or edema. No obvious deformities. NEUROLOGICAL: Awake and alert. No obvious cranial nerve deficits. Motor grossly within normal limits. Five out of 5 muscle strength in the arms and legs. Normal speech. PSYCHIATRIC: Appropriate mood and affect; insight and judgment normal. Results - Labs CBC & Chem 7: 07/08/18 11:40 07/08/18 11:40 Labs: Short CBC 07/08/18 Range/Units 11:40 WBC 6.8 (4.0-11.0) th/mm3 Hgb 12.8 L (13.0-17.0) gm/dL Hct 39.1 (39.0-51.0) % Plt Count 241 (150-450) th/mm3 [facility] 07/08/18 11:40 Sodium 138 Potassium 4.6 Chloride 108 H Carbon Dioxide 23.4 BUN 11 Creatinine 0.92 Calcium 8.4 L - Imaging Impressions Face CT 07/08/18 11:32 CONCLUSION: 1. Abnormal dentition in the left maxilla with multiple fractured or decayed teeth. 2. At the root of these teeth, there is severe bony destruction of the mandible characteristic of osteomyelitis. No associated soft tissue abscess identified. 3. Small dentigerous cyst at the root of the second left mandibular premolar. 4. Multiple retention cysts in the maxillary antra. Caprini VTE Risk Assessment Caprini VTE Risk Assessment: No/Low Risk (score <= 1) Caprini Risk Assessment Model: Point Value = 1 Point Value = 2 Point Value = 3 Point Value = 5 Age 41-60 Minor surgery BMI > 25 kg/m2 Swollen legs Varicose veins or History of unexplained or recurrent spontaneous Oral contraceptives or hormone replacement Sepsis (< 1 month) Serious lung disease, including pneumonia (< 1 month) Abnormal pulmonary function Acute myocardial infarction Congestive heart failure (< 1 month) History of inflammatory bowel disease Medical patient at bed rest Age 61-74 Arthroscopic surgery Major open surgery (> 45 min) Laparoscopic surgery (> 45 min) Malignancy Confined to bed (> 72 hours) Immobilizing plaster cast Central venous access Age >= 75 History of VTE Family history of VTE Factor V Leiden Prothrombin [id number] Lupus anticoagulant Anticardiolipin antibodies Elevated serum homocysteine Heparin-induced thrombocytopenia Other congenital or acquired thrombophilia Stroke (< 1 month) Elective arthroplasty Hip, pelvis, or leg fracture Acute spinal cord injury (< 1 month) Prophylaxis Regimen: Total Risk Factor Score Risk Level Prophylaxis Regimen 0-1 Low Early ambulation 2 Moderate Order ONE of the following: *Sequential Compression Device (SCD) *Heparin 5000 units SQ BID 3-4 Higher Order ONE of the following medications: *Heparin 5000 units SQ TID *Enoxaparin/Lovenox 40 mg SQ daily (WT < 150 kg, CrCl > 30 mL/min) *Enoxaparin/Lovenox 30 mg SQ daily (WT < 150 kg, CrCl > 10-29 mL/min) *Enoxaparin/Lovenox 30 mg SQ BID (WT < 150 kg, CrCl > 30 mL/min) AND/OR *Sequential Compression Device (SCD) 5 or more Highest Order ONE of the following medications: *Heparin 5000 units SQ TID (Preferred with Epidurals) *Enoxaparin/Lovenox 40 mg SQ daily (WT < 150 kg, CrCl > 30 mL/min) *Enoxaparin/Lovenox 30 mg SQ daily (WT < 150 kg, CrCl > 10-29 mL/min) *Enoxaparin/Lovenox 30 mg SQ BID (WT < 150 kg, CrCl > 30 mL/min) AND *Sequential Compression Device (SCD) Assessment and Plan - Plan Dental abscess status post incision and drainage with osteomyelitis of the mandible. -Consult oral maxillary facial-they wish to see him in their office after discharge -Consult infectious disease-we will defer antibiotics to them Marijuana abuse -recommend cessation GI prophylaxis with Pepcid DVT prophylaxis with MARLIN deleon and SCDs Hopefully discharge in the next few days to follow-up with oral maxillary facial Dr. Figueroa Code Status: Full code Discussed Condition With: Discussed with infectious disease oral maxillary patient and ER doctor and RN and patient Discharge Planning: Hopefully discharge in next few days to follow-up with Dr. Figueroa
[2018-07-08] MEDS: Vancomycin Inj 1,250 MG in Sodium Chlor 0.9% Inj 250 ML IV.SIG SCH (17:37)
--- NOTE | 2018-07-08 18:02 | MB ---
cc: Devante Del Rosario MD DATE: 07/08/2018 REQUESTING PHYSICIAN: Ramin Amin DO REASON: Osteomyelitis of the jaw. HISTORY OF PRESENT ILLNESS: This is a 53-year-old black male who has been having problems with swelling of his left lower jaw for about a month. The patient noted that he was having problems with a cavity in one of the premolars on the lower aspect of the left side of the jaw and he noted a hole in it. He states that he would clean it with a tooth pick or piece of plastic for the past 8 months or so. He noticed swelling of the left lower jaw about 4 weeks ago. He had no headache or jaw pain. He received some antibiotics from a friend and took those for about a week and he noted the swelling improved, but after the medication finished, the swelling again came back 2 weeks or so ago and he did not see as a dentist because he could not afford to. He eventually saw a local dentist and was sent to the emergency department for evaluation. He denied other symptoms and has been able to eat and open the jaw without difficulty. He was sent for a CT scan of the face and it showed abnormal dentition of the left maxilla with multiple fractured or decayed teeth and there was severe bony destruction of the mandible characteristic of osteomyelitis. No associated soft tissue abscess was identified. There was also a small cyst at the root of the second left mandibular premolar. Multiple retention cysts in the maxillary antra were noted as well. The patient has no fever or chills. He tells me that he was having some urinary urgency and straining before he started taking antibiotics. After he took the antibiotics, he said that improved. He has been started on antibiotic in the form of vancomycin and piperacillin/tazobactam. A culture of drainage from the inner lower jaw has been ordered. PAST MEDICAL HISTORY: Gastric reflux. The patient had a molar and premolar at the posterior aspect of the jaw in the left lower area removed in 2002. ALLERGIES: ALBUTEROL, ASPIRIN. MEDICATIONS: 1. Vancomycin. 2. Piperacillin-tazobactam. 3. Percocet 5 p.r.n. SOCIAL HISTORY: Denies tobacco use. Former smoker. Positive marijuana use. Denies IV drug use. Denies alcohol. The patient is . FAMILY HISTORY: Noncontributory. The patient's mother has hypertension. REVIEW OF SYSTEMS: All systems have been reviewed and are negative, except for that mentioned in the history of present illness. The patient denies numbness of the face. PHYSICAL EXAMINATION: GENERAL: This is a slender male who is in no acute distress. He is awake and alert and oriented. VITAL SIGNS: Temperature 98.2, BP 117/63, respirations 18, heart rate 82. HEENT: Head is atraumatic. The left lateral jaw has mild swelling. It is nontender. Extraocular movements grossly intact. Pupils reactive to light. No icterus. Oropharynx: Poor dentition. Mucosa is moist. NECK: Supple without adenopathy. LUNGS: Clear to auscultation. HEART: Regular S1, S2, without murmurs, rubs or gallops. ABDOMEN: Bowel sounds present. Soft, nontender. RECTAL: Not performed. EXTREMITIES: No clubbing, cyanosis or edema. SKIN: No diffuse rash. NEUROLOGIC: No gross focal finding. PSYCHIATRIC: The patient is calm and cooperative. LABORATORY DATA: WBC 6.8, platelets 241, 59% neutrophils, 29% lymphocytes, 9% monocytes. Creatinine 0.92, BUN 11, sodium 138. IMPRESSION: 1. Left mandibular osteomyelitis. 2. Dental caries. 3. Left mandible cyst with purulent drainage on aspiration. No abscess noted on CT scan. RECOMMENDATIONS: 1. Treat with clindamycin. 2. Maxillofacial dental evaluation and possible biopsy. The patient appears stable. However, he will require antibiotic treatment for osteomyelitis. I would treat him with clindamycin and to facilitate dental evaluation outpatient, he can be given p.o. clindamycin and follow up on the cultures to determine if antibiotics need to be adjusted. I have discussed this with Dr. Amin. It appears that the maxillofacial surgeon wants to see the patient in the office to do a complete evaluation. Because of the presence of osteomyelitis he will require long-term antibiotic treatment unless the diagnosis is determined to be noninfectious in origin. Thank you for this consultation. Devante Del Rosario MD FFD/ct , 04:44 PM , 05:00 PM CALI
[2018-07-08] MEDS: Senna/Docusate Sodium 8.6/50 MG Tablet PO SCH (23:28)
[2018-07-09] MEDS: Vancomycin Inj 1,250 MG in Sodium Chlor 0.9% Inj 250 ML IV.SIG SCH (06:06)
[2018-07-09 07:31] LABS: Baso % (Auto) 0.8 % (0.0-2.0); Eos # (Auto) 0.2 th/mm3 (0.0-0.4); Eos % (Auto) 5.3 % (0.0-4.0); Hematocrit 36.2 % (39.0-51.0); Lymph % (Auto) 45.7 % (9.0-44.0); Mean Corpuscular HGB Conc 33.3 % (32.0-36.0); Mean Corpuscular Hemoglobin 27.7 pg (27.0-34.0); Mean Corpuscular Volume 83.4 fL (80.0-100.0); Mean Platelet Volume 8.6 fL (7.0-11.0); Mono # (Auto) 0.4 th/mm3 (0.0-0.9); Mono % (Auto) 8.4 % (0.0-8.0); Neut # (Auto) 1.8 th/mm3 (1.8-7.7); Neut % (Auto) 39.8 % (16.0-70.0); Platelet Count 226 th/mm3 (150-450); Red Blood Count 4.34 mil/mm3 (4.50-5.90); White Blood Count 4.5 th/mm3 (4.0-11.0)
[2018-07-09 08:11] LABS: Alanine Aminotransferase 23 U/L (12-78); Albumin 2.9 g/dL (3.4-5.0); Alkaline Phosphatase 71 U/L (45-117); Anion Gap 7 meq/L (5-15); Aspartate Aminotransferase 12 U/L (15-37); Blood Urea Nitrogen 10 mg/dL (7-18); Calcium 7.6 mg/dL (8.5-10.1); Carbon Dioxide 24.1 meq/L (21.0-32.0); Chloride 110 meq/L (98-107); Free T4 (Free Thyroxine) 0.94 ng/dL (0.76-1.46); Glomerular Filtration Rate Greater Than 89 mL/min (>89); Glucose,Random 89 mg/dL (74-106); Magnesium 1.9 mg/dL (1.5-2.5); Phosphorus 2.3 mg/dL (2.5-4.9); Potassium 4.5 meq/L (3.5-5.1); Sodium 141 meq/L (136-145); Total Protein 5.9 g/dL (6.4-8.2)
[2018-07-09] MEDS: Senna/Docusate Sodium 8.6/50 MG Tablet PO SCH (09:23)
[2018-07-09 09:38] VITALS: O2SAT 97
[2018-07-09] MEDS: Piperacil/Tazo 4.5 GM Premix 4.5 GM/100 ML BAG IV.SIG SCH (09:50)
[2018-07-09 12:07] LABS: Hemoglobin A1c 6.1 % (4.3-6.0)
[2018-07-09 13:11] VITALS: BP 128/67; PULSE 50; TEMP 97.6
--- NOTE | 2018-07-09 13:20 | P.DS ---
Date of admission: 07/08/18 14:47 Primary care physician: No Primary Care Physician Attending physician on discharge: Clarisse Doty Anticipated date of discharge: 07/09/18 Brief History from admission: Patient is a 53-year-old -Citizen Of [place] gentleman. Who presented to the emergency department with pain and swelling on the left side of his jaw. He has had the pain and swelling of the left jaw for couple months. He took a friend's antibiotic for symptoms temporarily resolved and then recurred about a week later. Pain is about 9 out of 10. He had some improvement with the friend 's antibiotics. Patient had incision and drainage in the emergency by the emergency room physician will get cultures. Have discussed with oral maxillary facial and infectious disease and the emergency room physician. DS: Diagnosis - Discharge Diagnosis (1) Dental caries Status: Acute (2) Cyst of mandible Status: Acute (3) Acute osteomyelitis of mandible Status: Acute DS: Medications - Discharge Medications Prescriptions: clindamycin HCl 300 mg PO TID #90 cap Saccharomyces boulardii [Florastor] 250 mg PO TID #90 cap tamsulosin 0.4 mg PO DAILY #30 cap DS: Summary Hospital Course: Patient admitted with left sided pain and facial swelling after CT of the face revealed abnormal dentition of the left maxilla with multiple fractured decayed teeth and at the root of these teeth severe bony destruction of the mandible characteristic of osteomyelitis. No discrete abscess identified. Dr. Figueroa requested the patient been seen in his office after discharge. Patient was started on IV vancomycin and Zosyn and asked to be seen in consultation by infectious disease who changed antibiotic regimen to IV clindamycin. Culture was obtained but failed to show any growth. Patient had a rapid and unforeseen recovery. Patient was cleared for discharge on oral clindamycin for 1 month by infectious disease. Patient was scheduled for an appointment at 9 AM 07/10/[address] Figueora's office. - Time Spent with Patient Total time spent providing and/or coordinating discharge services: Less than 30 minutes - Quality: VTE Deep Vein Thrombosis/Pulmonary Embolism Present on Admission: No Exam Vital signs: Vital Signs 07/08/18 14:56 07/08/18 19:20 07/08/18 20:30 Temperature 97.3 F L Pulse Rate 82 74 58 L Respiratory Rate 18 18 18 Blood Pressure 117/63 124/60 116/61 Pulse Oximetry 97 99 07/09/18 00:00 07/09/18 04:00 07/09/18 08:00 Temperature 97.4 F L 97.1 F L 97.4 F L Pulse Rate 62 54 L 56 L Respiratory Rate 18 18 18 Blood Pressure 111/59 L 102/57 L 101/60 Pulse Oximetry 98 98 97 07/09/18 12:00 Temperature 97.6 F Pulse Rate 50 L Respiratory Rate 18 Blood Pressure 128/67 Pulse Oximetry 97 Intake & Output 07/08/18 07/09/18 07/09/18 18:59 06:59 18:59 Intake Total 942.5 / 942.5 Output Total 150 / 150 Balance 792.5 / 792.5 Weight 69.4 kg 71.1 kg Intake: IV 462.5 / 462.5 Zosyn 4.5 GM Premix 4.5 gm In 200 / 200 100 ml @ 200 mls/hr IV.SIG Q8H JÚNIOR Rx#:[id number] Vancomycin Inj 1,250 MG In NS 262.5 / 262.5 Inj 250 ML @ 250 mls/hr IV.SIG Q12H JÚNIOR Rx#:[id number] Oral 480 / 480 Output: Urine 150 / 150 Other: # Bowel Movements 0 Weight On Admission 70.4 kg Narrative: GENERAL: WDWN male patient, INAD. Awake and alert. Very talkative. SKIN: Warm and dry. No generalized rash. HEAD: Atraumatic. Normocephalic. EYES: Pupils equal and round. No scleral icterus. No injection or drainage. ENT: No nasal bleeding or discharge. Mucous membranes pink and moist. Poor dentition dental abscess left side of mouth status post incision and drainage. Swelling much improved. +Mildly tender to palpation. NECK: Trachea midline. CARDIOVASCULAR: Regular rate and rhythm. S1-S2 no S3 or S4 RESPIRATORY: No accessory muscle use. Clear to auscultation. Breath sounds equal bilaterally. GASTROINTESTINAL: Abdomen soft, non-tender, nondistended. +BS. MUSCULOSKELETAL: Extremities without clubbing, cyanosis, or edema. No obvious deformities. NEUROLOGICAL: Awake and alert. No obvious cranial nerve deficits. Motor grossly within normal limits. No focal neurologic findings appreciate. Normal speech. PSYCHIATRIC: Appropriate mood and affect; insight and judgment normal. Results Procedures completed during hospitalization: None Labs on day of discharge: Labs from last 24 hours 07/09/18 07/09/18 07/09/18 06:12 06:12 06:12 WBC 4.5 RBC 4.34 L Hgb 12.0 L Hct 36.2 L MCV 83.4 MCH 27.7 MCHC 33.3 RDW 14.0 Plt Count 226 MPV 8.6 Neut % (Auto) 39.8 Lymph % (Auto) 45.7 H [place] % (Auto) 8.4 H Eos % (Auto) 5.3 H Baso % (Auto) 0.8 Neut # (Auto) 1.8 Lymph # (Auto) 2.0 [place] # (Auto) 0.4 Eos # (Auto) 0.2 Baso # (Auto) 0.0 WBC Differential . Differential Comment Auto diff final Sodium 141 Potassium 4.5 Chloride 110 H Carbon Dioxide 24.1 Anion Gap 7 BUN 10 Creatinine 0.98 Estimated GFR Greater than 89 Random Glucose 89 Hemoglobin A1c Calcium 7.6 L D Phosphorus 2.3 L Magnesium 1.9 Total Bilirubin 0.5 AST 12 L ALT 23 Alkaline Phosphatase 71 Total Protein 5.9 L Albumin 2.9 L TSH 1.280 Free T4 0.94 Hepatitis A IgM Ab Pending Hep Bs Antigen Pending Hep B Core IgM Ab Pending Hep C IgG Ab Pending 07/09/18 06:10 WBC RBC Hgb Hct MCV MCH MCHC RDW Plt Count MPV Neut % (Auto) Lymph % (Auto) [place] % (Auto) Eos % (Auto) Baso % (Auto) Neut # (Auto) Lymph # (Auto) [place] # (Auto) Eos # (Auto) Baso # (Auto) WBC Differential Differential Comment Sodium Potassium Chloride Carbon Dioxide Anion Gap BUN Creatinine Estimated GFR Random Glucose Hemoglobin A1c 6.1 H Calcium Phosphorus Magnesium Total Bilirubin AST ALT Alkaline Phosphatase Total Protein Albumin TSH Free T4 Hepatitis A IgM Ab Hep Bs Antigen Hep B Core IgM Ab Hep C IgG Ab - Impressions ITS Impressions Face CT 07/08/18 11:32 CONCLUSION: 1. Abnormal dentition in the left maxilla with multiple fractured or decayed teeth. 2. At the root of these teeth, there is severe bony destruction of the mandible characteristic of osteomyelitis. No associated soft tissue abscess identified. 3. Small dentigerous cyst at the root of the second left mandibular premolar. 4. Multiple retention cysts in the maxillary antra. Discharge Plan - Discharge Disposition Patient Disposition: 01 Discharge Home - Discharge Condition Condition: Stable - Discharge Order Discharge Orders: Discharge Order (Routine); Ordered 07/09/18 Ordered By: Janel Garcia - Physicians Team Primary Care Provider: Primary Care Joan Atkins Attending Provider: Clarisse Doty Other Providers: Devante Del Rosario MD ; Leeroy Figueroa, DMD
[2018-07-09 15:45] LABS: Hepatitis A IgM Antibody Nonreactive (Nonreactive); Hepatitits B Surface Antigen Nonreactive (Nonreactive)
[2018-07-10] MEDS: Sod Chloride 0.9% Inj 1,000 ML IV.CONT SCH (01:11)
[2018-07-10] MEDS ORDERED: Pharmacy Ordered Lab Info OTHER ONE (05:45)
== END 2018-07-09 16:47 | disposition home or self-care (01) ==
LOC: NEPD 10:44 → NEDA 14:47 → N05 20:45
PROVIDERS: ADMIT Family Medicine; ATTEND Family Medicine